=== PATIENT | female | born 1950 | race Caucasian/White ===

== ENCOUNTER 2016-06-19 09:57 | Day surgery (SDC) | payer MEDICARE, BC ==
[~2016-06-19] VITALS: Ht 167.6 cm; Wt 69.3 kg
[~2016-06-19 09:57] MED LIST: ALDACTONE 25MG25 M1 PO; ALDACTONE25 MG PO; ASPIRIN 32325 MG/TAB PO; CELEXA 20MG20 MG/TAB PO; CLOPIDOGREL; COLESTID 1GM1 G PO; DIOVAN 160MG160 MG PO; DIOVAN HCT PO; DIOVAN160 MG PO; DIOVAN80 M1 PO; ENBREL50 MG/ML SC; HCTZ 25MG25 MG PO; HUMERA; HUMIRA40 MG/0.1 SC; INHALER; LIPITOR 40MG TA40 MG PO; LIPITOR40 MG PO; NORCO 325 MG-51 TAB PO; PRILOSEC10 MG; SORIATANE25 MG PO; TOPROL XL25 MG PO; TOPROL XL50 MG PO; ZETIA 10MG TAB10 MG PO; ZETIA10 MG PO
[2016-06-19 12:18] VITALS: BP 168/76; PULSE 60; TEMP 99.8
[2016-06-19] MEDS ORDERED: DIOVAN320 MG PO (12:25)
[2016-06-19] MEDS ORDERED: BYSTOLIC5 MG PO (12:26)
[2016-06-19] MEDS ORDERED: PRIL40 PO (12:27)
[2016-06-19] MEDS ORDERED: CELEXA40 MG PO (12:27)
[2016-06-19] MEDS ORDERED: HUMIRA40 MG/0.8 SQ (12:29)
[2016-06-19 15:49] VITALS: BP 128/68; PULSE 66; TEMP 97.7
[2016-06-19 16:04] VITALS: BP 123/69; PULSE 64
[2016-06-19 16:19] VITALS: BP 135/72; PULSE 61
[2016-06-19 16:34] VITALS: BP 135/72; BP 137/69; PULSE 59; PULSE 61
[2016-06-19] MEDS ORDERED: NORCO 325 MG-7.1 TAB PO (17:03)
[2016-06-19 17:04] VITALS: BP 122/72; PULSE 58
[2016-06-19] MEDS ORDERED: ROXICODONE 55 MG/TAB PO (17:04)
== END 2016-06-19 17:27 | disposition home or self-care (01) ==
LOC: SDCO 09:57
DX: S52.571A Other intraarticular fracture of lower end of right radius, initial encounter for closed fracture (principal); W11.XXXA Fall on and from ladder, initial encounter; I10 Essential (primary) hypertension; E78.5 Hyperlipidemia, unspecified; Z87.891 Personal history of nicotine dependence
CPT/HCPCS: C1713; J0360; J1885; J2250; J2704; J2795; J3010; J7120

== ENCOUNTER → 2016-10-07 | Outpatient (RCR) | payer MEDICARE, BC ==
[~2016-10-07] MED LIST changes: +BYSTOLIC5 MG PO; +CELEXA40 MG PO; +DIOVAN320 MG PO; +HUMIRA40 MG/0.8 SQ; +NORCO 325 MG-7.1 TAB PO; +PRIL40 PO; +ROXICODONE 55 MG/TAB PO
== END | disposition home or self-care (01) ==
LOC: WSOT
DX: S52.591D Other fractures of lower end of right radius, subsequent encounter for closed fracture with routine healing (principal); W10.8XXD Fall (on) (from) other stairs and steps, subsequent encounter; Y93.89 Activity, other specified
CPT/HCPCS: G8987-GO; G8988-GO

== ENCOUNTER 2016-11-12 09:45 | Outpatient (RCR) | payer BC, MEDICARE | END 2016-11-14 08:06 | LOC: WSOT 09:45 | DX: S52.301D Unspecified fracture of shaft of right radius, subsequent encounter for closed fracture with routine healing (principal) | CPT/HCPCS: G8988-GO; G8989-GO ==

== ENCOUNTER 2017-06-30 12:00 | Observation (INO) | payer MEDICARE, BC ==
[~2017-06-30] VITALS: Ht 157.5 cm; Wt 57.9 kg
[2017-06-30] VITALS (15 sets, daily range): BP systolic 138–188; BP diastolic 39–133; PULSE 56–65; TEMP 98–98.7
[2017-06-30 13:04] LABS: MEAN CELL VOLUME 92 fl (80.0-100.0); MEAN CORPUSCULAR HGB CONC 33 g/dl (33.0-37.0); MEAN PLATELET VOLUME 10.2 fl (7.4-10.4); PLATELET COUNT 238 K/mm3 (130-400); RED BLOOD COUNT 3.38 M/mm3 (4.10-5.30); REDCELL DISTRIBUTION WIDTH-CV 14.7 % (11.5-14.5)
[2017-06-30 13:07] LABS: HEMATOCRIT 31.1 % (37.0-47.0); HEMOGLOBIN 10.4 g/dl (12.5-16.0); MEAN CORPUSCULAR HEMOGLOBIN 31 pg (27.0-31.0)
[2017-06-30 13:23] LABS: PROTHROMBIN TIME 11.9 SECONDS (9.7-12.8)
[2017-06-30 15:31] LABS: COLLECTION METHOD CLEAN CATCH
[2017-06-30 15:49] LABS: ALBUMIN 3.6 gm/dL (3.5-5.0); BILIRUBIN,TOTAL 0.3 mg/dL (0.0-1.0); CALCIUM 8.9 mg/dL (8.4-10.2); CREATININE, serum 1.11 mg/dL (0.52-1.25); MAGNESIUM 1.8 mg/dL (1.6-2.3); PHOSPHOROUS 4.2 mg/dL (2.5-4.5); TOTAL PROTEIN 6.6 gm/dL (6.4-8.2)
[2017-06-30 16:03] LABS: POTASSIUM 2.4 mmol/L (3.4-5.0)
[2017-06-30 16:22] LABS: CALCIUM 8.6 mg/dL (8.4-10.2); CREATININE, serum 0.94 mg/dL (0.52-1.25)
[2017-06-30 16:25] LABS: URINE COLOR Yellow
[2017-06-30 16:26] LABS: PH 6 (5-8); URINE APPEARANCE Clear; URINE BILIRUBIN Negative (NEGATIVE); URINE BLOOD 2+ (NEGATIVE); URINE GLUCOSE Negative (NEGATIVE); URINE KETONE Negative (NEGATIVE); URINE LEUKOCYTE ESTERASE Trace (NEGATIVE); URINE NITRATE Negative (NEGATIVE); URINE PROTEIN(semi-quant) Negative (NEGATIVE); URINE UROBILINOGEN Negative (NEGATIVE)
[2017-06-30 16:29] LABS: POTASSIUM 2.6 mmol/L (3.4-5.0)
[2017-06-30 17:15] LABS: URINE PROTEIN:CREAT RATIO 0.68 (0.00-0.14)
[2017-07-01 03:13] VITALS: BP 157/78; PULSE 61; TEMP 98.1
[2017-07-01 07:40] VITALS: BP 177/84; PULSE 57; TEMP 97.8
[2017-07-01 08:20] LABS: BASO % 0.5 % (0.0-2.0); EOS # 0.2 (0.0-0.7); EOS % 2.5 % (0-4.0); GRAN # 4.7 (1.4-6.5); GRAN % 57.3 % (42.2-75.2); LYMPH # 2.6 (1.2-3.4); LYMPH % 31.7 % (20.0-51.0); MEAN CELL VOLUME 94 fl (80.0-100.0); MEAN CORPUSCULAR HGB CONC 33 g/dl (33.0-37.0); MONO # 0.6 (0.1-0.6); MONO % 7.6 % (1.7-9.3); PLATELET COUNT 240 K/mm3 (130-400); RED BLOOD COUNT 3.55 M/mm3 (4.10-5.30); REDCELL DISTRIBUTION WIDTH-CV 15.1 % (11.5-14.5)
[2017-07-01 08:21] LABS: HEMATOCRIT 33.2 % (37.0-47.0); HEMOGLOBIN 10.9 g/dl (12.5-16.0); MEAN CORPUSCULAR HEMOGLOBIN 31 pg (27.0-31.0)
[2017-07-01 08:29] LABS: CALCIUM 8.4 mg/dL (8.4-10.2); CREATININE, serum 0.92 mg/dL (0.52-1.25); POTASSIUM 3.3 mmol/L (3.4-5.0)
[2017-07-01] MEDS ORDERED: K-DUR 10 MEQ T10 MEQ PO (10:41)
[2017-07-01] MEDS ORDERED: FERRO-TIME325 MG PO (10:46)
== END 2017-07-01 11:30 | disposition home or self-care (01) ==
LOC: COL.CAR 12:00 → MEDICAL 17:02
PROVIDERS: Internal Medicine; Internal Medicine Interventional Cardiology; Internal Medicine Nephrology
DX: I25.10 Atherosclerotic heart disease of native coronary artery without angina pectoris (principal); E87.6 Hypokalemia; D50.9 Iron deficiency anemia, unspecified; I10 Essential (primary) hypertension; F32.9 Major depressive disorder, single episode, unspecified; K21.9 Gastro-esophageal reflux disease without esophagitis; F17.210 Nicotine dependence, cigarettes, uncomplicated; Z79.82 Long term (current) use of aspirin
CPT/HCPCS: G0378; J0360; J1644; J2250; J3010; J3480; J7040; J7042

== ENCOUNTER → 2017-10-15 | Outpatient (CLI) | payer MEDICARE, BC ==
[~2017-10-15] MED LIST changes: +FERRO-TIME325 MG PO; +K-DUR 10 MEQ T10 MEQ PO
== END ==
LOC: COL.RAD 07:26
DX: N20.0 Calculus of kidney (principal); K80.20 Calculus of gallbladder without cholecystitis without obstruction

== ENCOUNTER 2017-11-06 06:36 | Day surgery (SDC) | payer MEDICARE, BC ==
[2017-11-06] VITALS (8 sets, daily range): BP systolic 103–140; BP diastolic 62–81; PULSE 47–73; TEMP 97.6–98.3
[~2017-11-06] VITALS: Ht 167.6 cm; Wt 74.5 kg
[2017-11-06] MEDS ORDERED: BYSTOLIC20 MG PO (07:33)
[2017-11-06] MEDS ORDERED: IMDUR 30MG30 MG/TAB PO (07:37)
[2017-11-06] MEDS ORDERED: ZYRTEC 10MG10 MG PO (07:38)
[2017-11-06] MEDS ORDERED: ALDACTONE50 MG PO (07:38)
[2017-11-06] MEDS ORDERED: FOLIC ACID 40400 MCG PO (07:40)
[2017-11-06] MEDS ORDERED: VITAMIN D31000 I1 PO (07:40)
[2017-11-06] MEDS ORDERED: VITAMIN C500 MG PO (07:41)
[2017-11-06] MEDS ORDERED: PERCOCET 325 MG1 TA2 PO (09:02)
[2017-11-06] MEDS ORDERED: COLACE 100100 MG/CAP PO (09:03)
[2017-11-06] MEDS ORDERED: MOTRIN 600600 MG/TAB PO (09:03)
== END 2017-11-06 11:40 | disposition home or self-care (01) ==
LOC: SDCO 06:36
DX: K80.10 Calculus of gallbladder with chronic cholecystitis without obstruction (principal); I11.9 Hypertensive heart disease without heart failure; Z79.82 Long term (current) use of aspirin; Z79.899 Other long term (current) drug therapy; E78.00 Pure hypercholesterolemia, unspecified; K21.9 Gastro-esophageal reflux disease without esophagitis; F17.210 Nicotine dependence, cigarettes, uncomplicated; D64.9 Anemia, unspecified
CPT/HCPCS: J1100; J1885; J2405; J2704; J2710; J7120; Q9967

== ENCOUNTER → 2018-08-31 | Outpatient (CLI) | payer MEDICARE, BC ==
[~2018-08-31] MED LIST changes: +ALDACTONE50 MG PO; +BYSTOLIC20 MG PO; +COLACE 100100 MG/CAP PO; +FOLIC ACID 40400 MCG PO; +IMDUR 30MG30 MG/TAB PO; +MOTRIN 600600 MG/TAB PO; +PERCOCET 325 MG1 TA2 PO; +VITAMIN C500 MG PO; +VITAMIN D31000 I1 PO; +ZYRTEC 10MG10 MG PO
== END ==
LOC: MC.RAD 14:45
DX: Z12.31 Encounter for screening mammogram for malignant neoplasm of breast (principal)

== ENCOUNTER → 2018-09-03 | Outpatient (CLI) | payer MEDICARE, BC | LOC: MC.RAD 08:57 | DX: R92.2 Inconclusive mammogram (principal) | CPT/HCPCS: G0279 ==

== ENCOUNTER 2019-01-31 10:21 | Outpatient (CLI) | payer MEDICARE, BC ==
[2019-01-31] MEDS ORDERED: DESYREL 100MG100 MG PO (10:40)
[2019-01-31] MEDS ORDERED: K-TAB20 PO (10:40)
[2019-01-31] MEDS ORDERED: MULTI VITAMINS1 TAB PO (10:41)
[2019-01-31] MEDS ORDERED: NITROSTAT0.4 MG/TAB SL (10:41)
[2019-01-31] MEDS ORDERED: WELLBUTRIN SR150 M1 PO (10:41)
[2019-01-31] MEDS ORDERED: CATAPRES 0.1MG0.1 MG PO (10:42)
[2019-01-31] MEDS ORDERED: IRON TABLETS325 MG PO (10:42)
[2019-01-31] MEDS ORDERED: LAN-O-SOOTHE1 OIN TOP (10:43)
[2019-01-31 10:47] LABS: HEMATOCRIT 35.8 % (37.0-47.0); HEMOGLOBIN 11.6 g/dl (12.5-16.0); MEAN CELL VOLUME 97 fl (80.0-100.0); MEAN CORPUSCULAR HEMOGLOBIN 31 pg (27.0-31.0); MEAN CORPUSCULAR HGB CONC 32 g/dl (33.0-37.0); MEAN PLATELET VOLUME 11.5 fl (7.4-10.4); PLATELET COUNT 221 K/mm3 (130-400); RED BLOOD COUNT 3.71 M/mm3 (4.10-5.30); REDCELL DISTRIBUTION WIDTH-CV 14.2 % (11.5-14.5)
[2019-01-31 10:58] LABS: ALBUMIN 3.9 gm/dL (3.5-5.0); BILIRUBIN,TOTAL 0.4 mg/dL (0.0-1.0); CALCIUM 9.6 mg/dL (8.4-10.2); CREATININE, serum 1.91 (0.52-1.25); MAGNESIUM 1.9 mg/dL (1.6-2.3); POTASSIUM 3.6 mmol/L (3.4-5.0); TOTAL PROTEIN 7.1 gm/dL (6.4-8.2)
[2019-01-31 11:00] VITALS: BP 109/65; PULSE 55; TEMP 98.1
[2019-01-31 12:49] VITALS: BP 123/76; PULSE 57; TEMP 97
[2019-01-31 14:30] LABS: COLLECTION METHOD CLEAN CATCH
[2019-01-31 14:47] LABS: MUCOUS Present /lpf; PH 6 (5-8); SQUAMOUS EPITHELIAL 0-2 /hpf; URINE APPEARANCE Clear; URINE BACTERIA None Seen /hpf; URINE BILIRUBIN Negative (NEGATIVE); URINE BLOOD 1+ (NEGATIVE); URINE COLOR Yellow; URINE GLUCOSE Negative (NEGATIVE); URINE KETONE Negative (NEGATIVE); URINE LEUKOCYTE ESTERASE 1+ (NEGATIVE); URINE NITRATE Negative (NEGATIVE); URINE PROTEIN(semi-quant) 1+ (NEGATIVE); URINE UROBILINOGEN Negative (NEGATIVE)
== END 2019-01-31 14:13 | disposition home or self-care (01) ==
LOC: EUO 10:21
PROVIDERS: Internal Medicine
DX: E86.1 Hypovolemia (principal); R42 Dizziness and giddiness; E86.0 Dehydration
CPT/HCPCS: J7030

== ENCOUNTER → 2019-03-16 | Outpatient (CLI) | payer MEDICARE, BC ==
[~2019-03-16] MED LIST changes: +CATAPRES 0.1MG0.1 MG PO; +DESYREL 100MG100 MG PO; +IRON TABLETS325 MG PO; +K-TAB20 PO; +LAN-O-SOOTHE1 OIN TOP; +MULTI VITAMINS1 TAB PO; +NITROSTAT0.4 MG/TAB SL; +WELLBUTRIN SR150 M1 PO
== END ==
LOC: COL.RAD 07:04
DX: N13.2 Hydronephrosis with renal and ureteral calculous obstruction (principal)

== ENCOUNTER 2019-03-24 11:42 | Day surgery (SDC) | payer MEDICARE, BC ==
[~2019-03-24] VITALS: Ht 167.6 cm; Wt 67.3 kg
[2019-03-24 12:31] VITALS: BP 153/79; PULSE 55; TEMP 98.1
[2019-03-24] MEDS ORDERED: BYSTOLIC10 MG PO (12:45)
[2019-03-24] MEDS ORDERED: MAG-OX 400400 MG/TAB PO (12:48)
--- NOTE | 2019-03-24 12:51 | NUR ---
TO RM AT 1203- CALL IN REACH AND AT BEDSIDE.
[2019-03-24 15:50] VITALS: BP 115/67; PULSE 65; TEMP 98
--- NOTE | 2019-03-24 15:50 | NUR ---
Patient arrives to [facility] [place] [facility] via [place], accompanied by [employer] Cordelia. She is sitting up in bed, chatting, alert and oriented. She denies any pain or nausea. Monitoring applied - VSS and WNL on room air. Her spouse is brought to the bedside. Patient is offered and receives water and a muffin to eat. She expresses gratitude to staff for care. Will continue to monitor.
[2019-03-24 16:05] VITALS: BP 111/78; PULSE 68
--- NOTE | 2019-03-24 16:05 | NUR ---
Patient is sitting up eating and drinking. Denies any pain or nausea. Call light in reach.
--- NOTE | 2019-03-24 16:08 | NUR ---
Post-op follow-up appointment made with Dr. Camacho's office for 04/01/19 at 1030. Patient and spouse given appointment card.
[2019-03-24 16:20] VITALS: BP 120/75; PULSE 67
--- NOTE | 2019-03-24 16:20 | NUR ---
Patient is resting comfortably in room.
--- NOTE | 2019-03-24 16:20 | NUR ---
VSS and WNL on room air. Tolerating PO well. Has finished muffin and water. Denies nausea or pain.
--- NOTE | 2019-03-24 16:20 | NUR ---
Patient escorted to the restroom, she spends 10 minutes attempting to void, unable to void, returns to room.
[2019-03-24 16:35] VITALS: BP 123/59; PULSE 64
--- NOTE | 2019-03-24 16:35 | NUR ---
Patient is resting comfortably in room. Sipping water. Denies pain or nausea.
[2019-03-24 16:50] VITALS: BP 119/69; PULSE 61
--- NOTE | 2019-03-24 16:50 | NUR ---
VSS and WNL on room air. Patient requests to try to use the restroom again. Escorted to restroom at this time.
--- NOTE | 2019-03-24 16:59 | NUR ---
Patient voids and returns to room. Discharge criteria has been met. Discharge instructions discussed, denies any questions, and verbalizes understanding. PIV removed with catheter intact and hemostasis achieved. Changing to clothing independently.
--- NOTE | 2019-03-24 17:04 | NUR ---
Patient escorted to exit via wheelchair. Discharged to home with ride in private vehicle at 1704.
== END 2019-03-24 17:04 | disposition home or self-care (01) ==
LOC: SDCO 11:42
DX: N20.2 Calculus of kidney with calculus of ureter (principal); E78.5 Hyperlipidemia, unspecified; I10 Essential (primary) hypertension; M81.0 Age-related osteoporosis without current pathological fracture; F17.210 Nicotine dependence, cigarettes, uncomplicated; I25.10 Atherosclerotic heart disease of native coronary artery without angina pectoris; K21.9 Gastro-esophageal reflux disease without esophagitis; D64.9 Anemia, unspecified; F32.9 Major depressive disorder, single episode, unspecified; F41.9 Anxiety disorder, unspecified; Z82.49 Family history of ischemic heart disease and other diseases of the circulatory system; Z80.42 Family history of malignant neoplasm of prostate; Z80.0 Family history of malignant neoplasm of digestive organs; Z80.41 Family history of malignant neoplasm of ovary; Z90.49 Acquired absence of other specified parts of digestive tract; Z95.1 Presence of aortocoronary bypass graft
CPT/HCPCS: C1769; C2617; J0690; J1100; J1170; J1885; J2405; J2704; J3010; J7120; Q9967

== ENCOUNTER 2019-04-04 10:55 | Emergency (ER) | payer MEDICARE, BC ==
[~2019-04-04] VITALS: Ht 167.6 cm; Wt 68.2 kg
[~2019-04-04 10:55] MED LIST changes: +BYSTOLIC10 MG PO; +MAG-OX 400400 MG/TAB PO
[2019-04-04 11:42] LABS: BASO % 0.2 % (0.0-2.0); EOS % 0.1 % (0-4.0); GRAN # 14.4 (1.4-6.5); GRAN % 82.4 % (42.2-75.2); LYMPH # 1.5 (1.2-3.4); LYMPH % 8.8 % (20.0-51.0); MEAN CELL VOLUME 96 fl (80.0-100.0); MEAN CORPUSCULAR HGB CONC 33 g/dl (33.0-37.0); MEAN PLATELET VOLUME 11.1 fl (7.4-10.4); MONO # 1.4 (0.1-0.6); MONO % 7.9 % (1.7-9.3); PLATELET COUNT 229 K/mm3 (130-400); RED BLOOD COUNT 3.17 M/mm3 (4.10-5.30); REDCELL DISTRIBUTION WIDTH-CV 13.9 % (11.5-14.5)
[2019-04-04 11:43] LABS: HEMATOCRIT 30.5 % (37.0-47.0); HEMOGLOBIN 9.9 g/dl (12.5-16.0); MEAN CORPUSCULAR HEMOGLOBIN 31 pg (27.0-31.0)
[2019-04-04 11:53] LABS: ALBUMIN 3.5 gm/dL (3.5-5.0); BILIRUBIN,TOTAL 0.1 mg/dL (0.0-1.0); CALCIUM 8.8 mg/dL (8.4-10.2); CREATININE, serum 2.25 (0.52-1.25); POTASSIUM 4.2 mmol/L (3.4-5.0); TOTAL PROTEIN 7.1 gm/dL (6.4-8.2)
[2019-04-04 12:19] LABS: C-REACTIVE PROTEIN 23.5 mg/dL (0.0-0.9)
[2019-04-04 12:38] LABS: COLLECTION METHOD CLEAN CATCH
[2019-04-04 13:02] LABS: PH 5 (5-8); SQUAMOUS EPITHELIAL None Seen /hpf; URINE APPEARANCE Cloudy; URINE BACTERIA None Seen /hpf; URINE BILIRUBIN Negative (NEGATIVE); URINE BLOOD 3+ (NEGATIVE); URINE COLOR Yellow; URINE GLUCOSE Negative (NEGATIVE); URINE KETONE Negative (NEGATIVE); URINE LEUKOCYTE ESTERASE 3+ (NEGATIVE); URINE NITRATE Negative (NEGATIVE); URINE PROTEIN(semi-quant) 2+ (NEGATIVE); URINE RBC >50 /hpf; URINE UROBILINOGEN Negative (NEGATIVE)
[2019-04-04] MEDS ORDERED: CEFTIN500 MG PO (13:37)
[2019-04-04] MEDS ORDERED: ZOFRAN ODT4 MG PO (13:37)
[2019-04-04 14:15] VITALS: BP 101/67; PULSE 63; TEMP 97.7
[2019-04-05] MEDS ORDERED: LEVAQUIN 5500 MG/TA1 PO (15:35)
== END 2019-04-04 14:15 | disposition home or self-care (01) ==
LOC: COL.ER 10:55
PROVIDERS: Emergency Medicine
DX: N12 Tubulo-interstitial nephritis, not specified as acute or chronic (principal); Z79.82 Long term (current) use of aspirin
CPT/HCPCS: J0696; J2405; J7030

== ENCOUNTER 2019-06-01 09:33 | Day surgery (SDC) | payer MEDICARE, BC ==
[~2019-06-01] VITALS: Ht 167.6 cm; Wt 66.5 kg
[~2019-06-01 09:33] MED LIST changes: +CEFTIN500 MG PO; +LEVAQUIN 5500 MG/TA1 PO; +ZOFRAN ODT4 MG PO
[2019-06-01 10:00] VITALS: BP 117/74; PULSE 53; TEMP 97.2
[2019-06-01 12:20] VITALS: BP 112/69; PULSE 54; TEMP 98.2
--- NOTE | 2019-06-01 12:20 | NUR ---
Pt arrived to room via cart with Endo RN and ambulated easily to chair with touch assist. Received report at bedside. Pt is awake and oriented and appropriate. VSS and WNL. Pt denies pain or nausea at this time at muffin and water brought per pt's request. Dr. Prince at bedside reviewing procedure with patient and daughter. Call light within reach.
[2019-06-01 12:30] VITALS: BP 116/60; PULSE 55
--- NOTE | 2019-06-01 12:30 | NUR ---
Pt sitting up in chair comfortabely awake, alert, and oriented with daughter at bedside. VSS and WNL. Pt denies nausea or pain at this time, and she states that she would like to go home.
[2019-06-01 12:45] VITALS: BP 119/73; PULSE 54
--- NOTE | 2019-06-01 12:45 | NUR ---
Pt ready to go home and meets criteria for discharge. Reviewed discharge information with patient including educational packet and signs/symptoms to watch for. Pt expressed understanding and agreed with plan. VSS and WNL upon discharge.
== END 2019-06-01 13:05 | disposition home or self-care (01) ==
LOC: SDCO 09:33
DX: K52.832 Lymphocytic colitis (principal); D50.0 Iron deficiency anemia secondary to blood loss (chronic); K25.7 Chronic gastric ulcer without hemorrhage or perforation; K92.1 Melena; I10 Essential (primary) hypertension; F17.210 Nicotine dependence, cigarettes, uncomplicated; K21.9 Gastro-esophageal reflux disease without esophagitis; E78.5 Hyperlipidemia, unspecified; G47.30 Sleep apnea, unspecified; I25.10 Atherosclerotic heart disease of native coronary artery without angina pectoris; E78.00 Pure hypercholesterolemia, unspecified; D64.9 Anemia, unspecified; F32.9 Major depressive disorder, single episode, unspecified; F41.9 Anxiety disorder, unspecified; J30.2 Other seasonal allergic rhinitis; Z87.11 Personal history of peptic ulcer disease; Z90.49 Acquired absence of other specified parts of digestive tract; Z95.1 Presence of aortocoronary bypass graft; Z79.82 Long term (current) use of aspirin
CPT/HCPCS: J2704; J7030

== ENCOUNTER 2020-01-20 17:37 | Emergency (ER) | payer MEDICARE, BC ==
[~2020-01-20] VITALS: Ht 167.6 cm; Wt 65.9 kg
[2020-01-20 17:49] VITALS: TEMP 98.1
[2020-01-20 18:14] LABS: BASO % 0.2 % (0.0-2.0); EOS # 0.1 (0.0-0.7); EOS % 1.2 % (0-4.0); GRAN # 7.5 (1.4-6.5); GRAN % 71.5 % (42.2-75.2); HEMOGLOBIN 10.6 g/dl (12.5-16.0); LYMPH # 2.1 (1.2-3.4); LYMPH % 20.3 % (20.0-51.0); MEAN CELL VOLUME 93 fl (80.0-100.0); MEAN CORPUSCULAR HEMOGLOBIN 31 pg (27.0-31.0); MEAN CORPUSCULAR HGB CONC 33 g/dl (33.0-37.0); MEAN PLATELET VOLUME 10.5 fl (7.4-10.4); MONO # 0.7 (0.1-0.6); MONO % 6.5 % (1.7-9.3); PLATELET COUNT 269 K/mm3 (130-400); REDCELL DISTRIBUTION WIDTH-CV 14.4 % (11.5-14.5)
[2020-01-20 18:16] LABS: HEMATOCRIT 31.7 % (37.0-47.0)
[2020-01-20 18:25] LABS: COLLECTION METHOD CLEAN CATCH
[2020-01-20 18:35] LABS: PH 5 (5-8); SQUAMOUS EPITHELIAL 0-2 /hpf; URINE APPEARANCE Clear; URINE BACTERIA None Seen /hpf; URINE BILIRUBIN Negative (NEGATIVE); URINE BLOOD 2+ (NEGATIVE); URINE COLOR Yellow; URINE GLUCOSE Negative (NEGATIVE); URINE KETONE Negative (NEGATIVE); URINE LEUKOCYTE ESTERASE Negative (NEGATIVE); URINE NITRATE Negative (NEGATIVE); URINE PROTEIN(semi-quant) 1+ (NEGATIVE); URINE RBC >50 /hpf; URINE UROBILINOGEN Negative (NEGATIVE)
[2020-01-20 18:36] LABS: ALANINE AMINOTRANSFERASE 16 U/L (4-34); ALBUMIN 3.9 gm/dL (3.5-5.0); ALKALINE PHOSPHATASE 87 U/L (50-136); ANION GAP 11 mmol/L (7-16); AST,SGOT 32 U/L (15-37); BILIRUBIN,TOTAL 0.3 mg/dL (0.0-1.0); BLOOD UREA NITROGEN 16 mg/dL (7-17); CALCIUM 8.8 mg/dL (8.4-10.2); CARBON DIOXIDE 18 mmol/L (22-30); CHLORIDE 112 mmol/L (98-107); CREATININE, serum 1.55 (0.52-1.25); GLUCOSE 91 mg/dL (74-106); POTASSIUM 3.1 mmol/L (3.4-5.0); SODIUM 140 mmol/L (137-145)
[2020-01-20 18:40] LABS: C-REACTIVE PROTEIN < 0.5 mg/dL (0.0-0.9)
[2020-01-20] MEDS ORDERED: NORCO 325 MG-51 TAB PO (19:36)
[2020-01-20] MEDS ORDERED: CEFTIN500 MG PO (19:36)
[2020-01-20 19:41] VITALS: BP 158/95; PULSE 77
== END 2020-01-20 19:54 | disposition home or self-care (01) ==
LOC: COL.ER 17:37
PROVIDERS: Emergency Medicine
DX: N39.0 Urinary tract infection, site not specified (principal); I25.10 Atherosclerotic heart disease of native coronary artery without angina pectoris; I10 Essential (primary) hypertension; F17.210 Nicotine dependence, cigarettes, uncomplicated; Z98.890 Other specified postprocedural states; Z87.442 Personal history of urinary calculi; Z79.82 Long term (current) use of aspirin
CPT/HCPCS: J0696; J3010; J7030

== ENCOUNTER → 2021-03-04 | Outpatient (CLI) | payer MEDICARE, BC | LOC: COL.RAD 15:00 | DX: Z12.2 Encounter for screening for malignant neoplasm of respiratory organs (principal); N20.0 Calculus of kidney; F17.210 Nicotine dependence, cigarettes, uncomplicated ==